=== PATIENT | male | born 1970 | race Caucasian/White ===

== ENCOUNTER → 2017-07-15 11:40 | Outpatient (CLI) | payer BC | END | disposition home or self-care (01) | LOC: D.MRI 11:30 | DX: R51 Headache (principal) ==

== ENCOUNTER → 2019-06-21 09:43 | Outpatient (CLI) | payer BC ==
--- NOTE | 2019-06-26 11:09 | EC ---
PATIENT:JAMES PHAN DATE OF SERVICE: 06/21/19 SEX: M MEDICAL RECORD: [id number] DATE OF : 70 LOCATION:[facility] AGE OF PATIENT: 49 ADMISSION DATE: 06/21/19 REFERRING PHYSICIAN: INTERPRETING PHYSICIAN: ROSA MOREL MD ECHOCARDIOGRAM REPORT ECHO CHARGES 4 ECHO COMPLETE Date: 06/21/19 CLINICAL DIAGNOSIS: PALPITATIONS/ROBERTSON/DIZZINESS/ A-FIB ECHOCARDIOGRAPHIC MEASUREMENTS (adult normal given) AC root (d.<3.7cm) 2.9 cm LV Septum d (<1.2 cm> 1.2 cm Valve Excursion 2.4 cm LV Septum (systole) 2.0 cm Left Atria (s.<4.0cm> 3.9 cm LVPW d(<1.2cm) 1.3 cm RV (d.<2.3cm) 3.4 cm LVPW (sytole) 2.0 cm LV diastole(<5.6CM) 5.4 cm MV E-F(>70mm/sec) cm LV systole 2.8 cm LVOT Diameter 2.1 cm MV exc.(>10mm) cm Est.ejection fraction (50-75%) % DOPPLER: LVIT cm/sec A 45.0 cm/sec E 102 cm/sec LA cm/sec RVSP 19.2 mmHg LVOT 119 cm/sec AOP1/2T m/s Asc. Ao 136 cm/sec RVOT 74.0 cm/sec RA cm/sec PA 120 cm/sec AV Gradient Peak 7.4 mmHg AV Mean 4.1 mmHg AV Area 2.3 cm MV Gradient Peak 5.3 mmHg MV Mean 1.9 mmHg MV Area cm COMMENTS: OP - HC Telecommunication Equipment Repairer: Nneka QUIGLEY ARCENIO Cement Sprayer Helper: 1 Dr. Morel TAPE# PACS Pericardial Effusion N DATE OF SERVICE: 06/21/2019 FINDINGS: 1. Left ventricular chamber size is within normal limits. Left ventricular systolic function is normal. Overall ejection fraction is estimated at 60%. 2. Left atrium is within normal limits at 3.9 cm. Right atrium and right ventricular chamber sizes are mildly dilated. 3. Valvular structures have normal structure and motion. 4. Doppler interrogation reveals trace mitral regurgitation. No other valvular insufficiency or stenosis. Pulmonary systolic pressure is normal, estimated at ECHOCARDIOGRAM REPORT [id number] JAMES PHAN 19 mmHg. 5. No evidence of pericardial effusion or left ventricular thrombus. TRANSINT:[id number] Voice Confirmation ID: [id number] DOCUMENT ID: [id number] ROSA MOREL MD at 1109 CC: [id number] DICTATION DATE: 06/22/19 1145 MACHINE MAINTENANCE MECHANIC: 06/22/19 1250 DEP CLI 06/21/19 [id number] [place] [address]
== END | disposition home or self-care (01) ==
LOC: D.HCCARDIO 09:43
PROVIDERS: ATTEND Internal Medicine Interventional Cardiology
DX: I48.91 Unspecified atrial fibrillation (principal)